=== PATIENT | male | born 1955 | race African-American/Black ===

== ENCOUNTER 2019-09-19 13:24 | Inpatient (IN) ==
[2019-09-19] MEDS ORDERED: hydrALAZINE 20 MG/1 ML VIAL IV STA (14:54)
[2019-09-19] MEDS ORDERED: ONDANSETRON 4 MG/2 ML VIAL IV STA (14:54)
[2019-09-19] MEDS ORDERED: PANTOPRAZOLE 40 MG VIAL IV STA (14:54)
[2019-09-19] MEDS ORDERED: SODIUM CHLORIDE 0.9% 1,000 ML IV STA (14:54)
[2019-09-19] MEDS ORDERED: METOCLOPRAMIDE 10 MG/2 ML VIAL IV STA (14:54)
[2019-09-19 15:32] LABS: Albumin 3.3 G/DL (3.4-5.0); Bilirubin,Total 1.1 MG/DL (0.2-1.0); Calcium 9.7 MG/DL (8.5-10.1); Ferritin 39.1 ng/ml (26-388); Osmolality,Calculated 267.2 MOS/KG (273-304); Total Protein 8.8 G/DL (6.4-8.3)
[2019-09-19 15:38] LABS: Basophils % 0.3 % (0.0-0.8); Eosinophils # 0.2 10*3/uL (0.0-0.87); Eosinophils % 3.5 % (0.00-10.9); Hematocrit 36.9 VOL% (42.0-52.0); Hemoglobin 11.1 GM/DL (14.0-18.0); Immature Granulocytes % 0.1 %; Immature Granulocytes Absolute 0.01 #; Lymphocytes # 1.6 10*3/uL (1.4-4.0); Lymphocytes % 23.1 % (21.2-54.2); Mean Corpuscular HGB Conc 30.1 GM/DL (32-36); Mean Corpuscular Volume 70.2 FL (87-102); Mean Platelet Volume 9.2 FL (9.6-12.0); Monocytes % 9.6 % (1.7-12.7); Neutrophils % 63.4 % (38.7-73.9); Platelet Count 398 T/CUMM (130-400); Red Blood Count 5.26 MC/CUMM (3.8-5.5); Red Cell Distribution Width 20.3 % (9.3-17.3); White Blood Count 6.8 T/CUMM (4-12)
[2019-09-19] MEDS ORDERED: DEXTROSE 10% 250 ML BAG IV PRN (16:53)
[2019-09-19] MEDS ORDERED: GLUCAGON 1 MG VIAL IM PRN (16:53)
[2019-09-19] MEDS ORDERED: ONDANSETRON 4 MG/2 ML VIAL IV PRN (16:53)
[2019-09-19] MEDS ORDERED: ACETAMINOPHEN 325 MG TABLET PO PRN (16:53)
[2019-09-19 17:29] LABS: Apearance,Urine CLEAR (Clear); Bilirubin,Urine Negative (Negative); Blood, Urine Moderate mg/dL (Negative); Glucose,Urine (UA) Negative (Negative); Hyaline Casts,Urine 4 /LPF (0-3); Ketones,Urine Negative (Negative); Mucus,Urine Few /LPF (Occasional); Nitrite,Urine Negative (Negative); Protein,Urine Negative; RBC,Urine <1 /HPF (0-4); Urine Color Yellow (Yellow); Urine Specific Gravity 1.008 (1.001-1.035); Urine Urobilinogen < 2.0 EU/DL (0.2-1.0); WBC,Urine <1 /HPF (0-6)
[2019-09-19] MEDS: SODIUM CHLORIDE 0.9% 1,000 ML IV SCH (18:33)
[2019-09-19] MEDS: ENOXAPARIN 40 MG/0.4 ML SYRINGE SUBCUT SCH (21:15)
[2019-09-20] MEDS ORDERED: ZALEPLON 5 MG CAPSULE PO PRN (00:02)
[2019-09-20] MEDS: hydrALAZINE 20 MG/1 ML VIAL IV PRN ×2 (04:23→13:06)
[2019-09-20] MEDS: SODIUM CHLORIDE 0.9% 1,000 ML IV SCH ×2 (04:25→14:00)
[2019-09-20 06:12] LABS: Basophils % 0.4 % (0.0-0.8); Eosinophils # 0.3 10*3/uL (0.0-0.87); Eosinophils % 4.7 % (0.00-10.9); Hemoglobin 9.5 GM/DL (14.0-18.0); Immature Granulocytes % 0.2 %; Immature Granulocytes Absolute 0.01 #; Lymphocytes # 1.3 10*3/uL (1.4-4.0); Mean Corpuscular HGB Conc 29.7 GM/DL (32-36); Mean Corpuscular Volume 69.6 FL (87-102); Mean Platelet Volume 9.1 FL (9.6-12.0); Monocytes % 11.3 % (1.7-12.7); Neutrophils % 59.4 % (38.7-73.9); Platelet Count 357 T/CUMM (130-400); Red Cell Distribution Width 19.9 % (9.3-17.3); White Blood Count 5.5 T/CUMM (4-12)
[2019-09-20 06:34] LABS: Albumin 2.8 G/DL (3.4-5.0); Bilirubin,Total 0.6 MG/DL (0.2-1.0); Osmolality,Calculated 264.2 MOS/KG (273-304); Total Protein 7.3 G/DL (6.4-8.3)
[2019-09-20] MEDS ORDERED: PANTOPRAZOLE 40 MG TABLET PO SCH (09:00)
[2019-09-20] MEDS ORDERED: NICOTINE 14 MG/24 HR PATCH TRANSDERM SCH (09:00)
[2019-09-20] MEDS: ENOXAPARIN 40 MG/0.4 ML SYRINGE SUBCUT SCH (21:56)
[2019-09-21] MEDS: hydrALAZINE 20 MG/1 ML VIAL IV PRN ×2 (01:16→04:29)
[2019-09-21] MEDS ORDERED: hydrALAZINE 20 MG/1 ML VIAL IV ONE (04:11)
[2019-09-21 07:52] VITALS: BP 177/89
[2019-09-21] MEDS ORDERED: amLODIPine 5 MG TABLET PO SCH (09:00)
== END 2019-09-21 09:56 | disposition left against medical advice (07) | DRG 375 ==
LOC: N.ED 13:24 → SUATTDRO 16:53 → N.EDINP 16:53 → N.3E 17:35
PROVIDERS: ADMIT Family Medicine; ATTEND Emergency Medicine